=== PATIENT | female | born 1995 | race Caucasian/White ===

== ENCOUNTER 2019-05-19 07:00 | Outpatient (CLI) | payer OTHER ==
[2019-05-19 21:37] LABS: TRICHOMONAS VAGINALIS DNA NEGATIVE (NEGATIVE)
== END 2019-05-19 23:59 ==
LOC: LAB.R 07:00
PROVIDERS: ATTEND Obstetrics & Gynecology
DX: Z36.85 Encounter for antenatal screening for Streptococcus B (principal)
CPT/HCPCS: 87491; 87591; 87661; 87797

== ENCOUNTER 2019-06-07 11:42 | Outpatient (CLI) | payer OTHER ==
[2019-06-07 12:00] LABS: BASOPHILS % (AUTO) 0.5 %; EOSINOPHILS % (AUTO) 0.4 %; LYMPHOCYTES # (AUTO) 1.5 10^3/uL (1.5-3.5); MEAN CORPUSCULAR HEMOGLOBIN 30.4 pg (27.0-31.0); MEAN CORPUSCULAR HGB CONC 33.8 g/dL (32.0-36.0); MEAN CORPUSCULAR VOLUME 89.9 fL (81.0-99.0); MEAN PLATELET VOLUME 10.2 fL (7.9-10.8); MONOCYTES # (AUTO) 0.7 10^3/uL (0.0-1.0); NEUTROPHILS % (AUTO) 72.6 %; PLT - PLATELET COUNT 231 10^3/uL (130-450); RED BLOOD COUNT 3.95 10^6/uL (4.20-5.40); RED CELL DISTRIBUTION WIDTH 13.2 % (12.0-15.0); WHITE BLOOD COUNT 8.2 x10^3/uL (4.8-10.8)
[2019-06-07 12:09] LABS: CALCIUM 8.6 mg/dL (8.5-10.3); CREATININE 0.7 mg/dL (0.4-1.0)
== END 2019-06-07 11:43 | disposition home or self-care (01) ==
LOC: LAB 11:42
PROVIDERS: ATTEND Obstetrics & Gynecology
DX: O34.211 Maternal care for low transverse scar from previous cesarean delivery (principal); Z3A.00 Weeks of gestation of pregnancy not specified; Z01.812 Encounter for preprocedural laboratory examination
CPT/HCPCS: 36415; 80048; 85025; 86850; 86900; 86901

== ENCOUNTER 2019-06-08 05:39 | Inpatient (IN) | payer OTHER ==
[2019-06-08] MEDS ORDERED: ceFAZolin 3 GM in SODIUM CHLORIDE 0.9% 100ML 100 ML IV ONE (05:51)
[2019-06-08] MEDS ORDERED: LACTATED RINGERS 1,000 ML IV ONE ×3 (06:10→08:24)
[2019-06-08] MEDS ORDERED: METHYLERGONOVINE 0.2 MG/ML VIAL ONE (07:13)
[2019-06-08] MEDS ORDERED: ROPIVACAINE 0.2% PF 20ML VIAL ONE (07:13)
[2019-06-08] MEDS ORDERED: CARBOPROST TROMETHAMINE 250 MCG/ML AMP IM ONE (07:13)
--- NOTE | 2019-06-08 07:22 | ANESTHESIA ---
Pre-Anesthesia VS, & Labs - Diagnosis IUP - Procedure Repeat C Section Vital Signs: Temp Pulse Resp BP Pulse Ox 36.9 C 96 18 131/84 H 95 06/08/19 06:52 06/08/19 06:52 06/08/19 06:52 06/08/19 06:52 06/08/19 06:52 Height 5 ft 4 in Weight (kg) 101.151 kg - Is Patient ?: Yes Home Medications and Allergies Allergies/Adverse Reactions: Allergies Allergy/AdvReac Type Severity Reaction Status Date / Time No Known Drug Allergies Allergy Verified 06/08/19 06:38 Anes History & Medical History - Anesthetic History Anesthesia Complications: reports: No previous complications Family history of Anesthesia Complications: Denies Family history of Malignant Hyperthermia: Denies - Medical History Cardiovascular: reports: None Pulmonary: reports: None Gastrointestinal: reports: GERD Urinary: reports: None Neuro: reports: None Musculoskeletal: reports: None Endocrine/Autoimmune: reports: None Blood Disorders: reports: None Skin: reports: None Smoking Status: Former smoker (quite 4 years ago) Psychosocial: reports: No issues indicated - Surgical History Gynecologic: section (emergency c sec 2012) Exam General: Alert, Oriented x3, Cooperative, No acute distress Dental: WNL Mouth Openin Fingerbreadth Neck Mobility: Normal Mallampati classification: I Thyromental Distance: less than 4 cm Respiratory: Lungs clear, Normal breath sounds, No respiratory distress, No accessory muscle use Cardiovascular: Regular rate, Normal S1, Normal S2, No murmurs Abdomen: Normal bowel sounds, Soft, No tenderness, No hepatospenomegaly, No masses Extremities: No clubbing, No cyanosis, No edema, Normal pulses, No tenderness/swelling Neurological: Normal gait, Normal speech, Strength at 5/5 X4 ext, Normal tone, Sensation intact, Cranial nerves 3-12 NL, Reflexes 2+ Mental/Cognitive Status: Alert/Oriented X3, Normal for patient Cognitive Status: Within normal limits Plan Anesthesia Type: Spinal Consent for Procedure(s) Verified and Reviewed: Yes Code Status: Attempt Resuscitation ASA classification: 2-Mild systemic disease Is this case an emergency?: No
[2019-06-08] MEDS ORDERED: CITRIC ACID/SODIUM CITRATE 15 ML UDC PO ONE ×2 (07:30→07:38)
[2019-06-08] MEDS ORDERED: ONDANSETRON 4 MG/2 ML VIAL IVP ONE (08:24)
[2019-06-08] MEDS ORDERED: ePHEDrine 50 MG/ML VIAL IVP ONE (08:24)
[2019-06-08] MEDS ORDERED: OXYTOCIN 10 UNIT/ML VIAL IV ONE (08:24)
[2019-06-08] MEDS ORDERED: MORPHINE PF 5 MG/10 ML AMP EP ONE (08:24)
[2019-06-08] MEDS ORDERED: PHENYLEPHRINE 10 MG/ML VIAL IV ONE (08:24)
[2019-06-08] MEDS ORDERED: diphenhydrAMINE 25 MG CAPSULE PO PRN (10:03)
[2019-06-08] MEDS ORDERED: ONDANSETRON 4 MG/2 ML VIAL IVP PRN (10:03)
[2019-06-08] MEDS ORDERED: SODIUM CHLORIDE FLUSH 0.9% 10 ML SYRINGE IVP PRN (10:03)
--- NOTE | 2019-06-08 10:15 | OPERATIVE REPORT ---
Operative Report - General Admit Date: 06/08/19 Procedure Date: 06/08/19 Planned Procedure: repeat LTC/S Pre-Op Diagnosis: 39 week, prior C/S Procedure Performed: repeat LTC/S Post Op Diagnosis: Same - Procedure Note Primary Surgeon: meg Pritchett MD Secondary Surgeon: Sara Mcgrath MD Anesthesia Provider: Gigi Olivares CRNA Anesthesia Technique: Regional block (TAP block), Spinal Pathology: none IV Fluids (mL): 900 Estimated Blood Loss (mL): 500 Urine Output (mL): 200 Indications: repeat Csection Complications: none
[2019-06-08] MEDS ORDERED: ACETAMINOPHEN 1,000 MG/100 ML 100 ML IV ONE (10:41)
[2019-06-08] MEDS ORDERED: KETOROLAC 30 MG/ML VIAL IVP SCH (11:00)
[2019-06-08] MEDS ORDERED: LACTATED RINGERS 1,000 ML IV SCH (11:00)
[2019-06-08] MEDS: ACETAMINOPHEN 500 MG TABLET PO SCH ×3 (12:16→23:47)
--- NOTE | 2019-06-08 12:31 | OPERATIVE REPORT ---
DATE OF SERVICE: 06/08/2019 Physician: Hitesh Pritchett MD PREOPERATIVE DIAGNOSIS: A 39 weeks estimated gestational age. POSTOPERATIVE DIAGNOSES: 1. A 39 weeks estimated gestational age. 2. Previous section. PROCEDURE PERFORMED: Repeat low transverse section. SURGEON: Hitesh Pritchett MD. ROLL CUTTER: Sara Mcgrath. ANESTHESIA: Gigi Olivares CRNA. ANESTHETIC: Spinal and regional. IV FLUIDS: 900 mL. ESTIMATED BLOOD LOSS: 500 mL. URINE OUTPUT: 200 mL. FINDINGS: Upon entering the abdominal cavity, a live male with Apgars 9 and 9 was noted to be in right occiput anterior position. Amniotic fluid was clear. There was a nuchal cord x1. DESCRIPTION OF PROCEDURE: Following adequate spinal anesthesia, patient was placed in the supine position with a roll under her right hip. At this point, a Vogel catheter was placed under sterile condition. She was prepped and draped in the usual fashion. A timeout was performed, during which concerns were addressed. The issue of having had previous section was mentioned. At this point, the procedure commenced. A low Pfannenstiel incision was carried down through subcutaneous tissue to the fascia. The fascia was incised transversely. Then, using both blunt and sharp dissection, was freed from rectus abdominis and pyramidalis. The rectus was entered high, care was taken to avoid any injury to bowel or bladder. At this point, a bladder flap was developed using both blunt and sharp dissection. A low transverse uterine incision was accomplished using a #10 blade, bandage scissors and finger spread technique. Clear amniotic fluid was encountered at this time, as the membranes were ruptured. The was noted to be right occiput anterior position and there was a nuchal cord x1. The infant was delivered without difficulty. The cord was allowed to pulsate for 1 minute as there was minimal bleeding from the uterine incision itself. At this point, the cord was doubly clamped, divided, and the was handed to the nursery team that was standing by. Cord blood samples were obtained. The placenta was manually delivered. There was extra amniotic membranes were noted in the cervical area. These were removed with ring forceps. The uterus was exteriorized, wrapped in a moist lap and cleansed in the internal portion with dry lap. The incision was then closed using running locking suture of 0 Vicryl with an imbricating layer of 0 Vicryl. At this point, there was evidence of good hemostasis of the incision. The uterus was tipped forward and then the cul-de-sac was suctioned of any clot. The estimated blood was noted to be roughly 500 mL, counting both that in the canister as well as on the laps. At this point, the uterus was delivered back in abdominal cavity. The incision was inspected. No further bleeding was noted. The gutters were irrigated and the peritoneum was closed utilizing 2-0 Vicryl. The rectus was reapproximated with a single [id number] of 2-0 Vicryl. At this point, the rectus was inspected. No bleeding noted, so the fascia was closed using looped 0 PDS. Subcutaneous tissue was noted to be free of any bleeding, so it was closed utilizing 2-0 Vicryl. Incision itself was closed using 4-0 Monocryl subcuticular. At this point, a wound VAC was placed. The sponge and needle counts were correct. The patient tolerated the procedure well. During the procedure Dr Mcgrath assisted with retraction suction and suturing. TD: 06/08/2019 10:33 MTDD
[2019-06-08] MEDS ORDERED: KETOROLAC 30 MG/ML VIAL IVP PRN (15:22)
--- NOTE | 2019-06-08 15:31 | CONSULTATION NOTE ---
Consultation Report: Just spoke with REMY Oleary to have toradol changed from total 4 doses to only 2 doses PRN q6hr. Also requested to make sure the patient does not receive ibuprofen if receiving toradol and no toradol if receiving ibuprofen.
[2019-06-08] MEDS: SODIUM CHLORIDE FLUSH 0.9% 10 ML SYRINGE IVP SCH ×2 (18:11→23:47)
[2019-06-08] MEDS: SIMETHICONE CHEW 80 MG TABLET PO SCH (18:24)
[2019-06-08] MEDS: DOCUSATE SODIUM 100 MG CAPSULE PO SCH (20:55)
[2019-06-09] MEDS: IBUPROFEN 800 MG TABLET PO SCH ×3 (06:01→18:46)
[2019-06-09 06:23] LABS: BASOPHILS # (AUTO) 0.1 10^3/uL (0.0-0.1); BASOPHILS % (AUTO) 0.4 %; EOSINOPHILS % (AUTO) 0.3 %; HGB - HEMOGLOBIN 10.7 g/dL (12.0-16.0); LYMPHOCYTES # (AUTO) 2.3 10^3/uL (1.5-3.5); LYMPHOCYTES % (AUTO) 19.8 %; MEAN CORPUSCULAR HEMOGLOBIN 30.7 pg (27.0-31.0); MEAN CORPUSCULAR VOLUME 90.3 fL (81.0-99.0); MEAN PLATELET VOLUME 10.9 fL (7.9-10.8); MONOCYTES # (AUTO) 0.9 10^3/uL (0.0-1.0); MONOCYTES % (AUTO) 7.4 %; NEUTROPHILS # (AUTO) 8.3 10^3/uL (1.5-6.6); NEUTROPHILS % (AUTO) 71.5 %; PLT - PLATELET COUNT 195 10^3/uL (130-450); RED BLOOD COUNT 3.49 10^6/uL (4.20-5.40); RED CELL DISTRIBUTION WIDTH 13.3 % (12.0-15.0); WHITE BLOOD COUNT 11.6 x10^3/uL (4.8-10.8)
--- NOTE | 2019-06-09 08:45 | PROVIDER PROGRESS NOTE ---
Subjective - General Admit Date: 06/08/19 Procedure Date: 06/08/19 Post Op Days: 1 Procedure Performed: REPEAT LTC/S - Review of Systems Wound/Incisions: positive: Dressing dry and intact Drain Type: Wound vac General: positive: No symptoms (Pain 1-2/10, no flatus. breast feeding. ambulating well) Pulmonary: positive: No symptoms Cardiovascular: positive: No symptoms Gastrointestinal: negative: Nausea, Vomiting, Flatus Musculoskeletal: positive: No symptoms Skin: positive: No symptoms Psychiatric: positive: No symptoms Objective - Patient Data Reviewed Vital Signs: Yes Vital Signs: Vital Signs x48h Temp Pulse Resp BP Pulse Ox 06/09/19 04:38 36.5 C 56 L 16 101/62 98 Weight: Weight 06/07/19 06/08/19 06/09/19 23:59 23:59 23:59 Weight (kg) 101.151 kg Intake & Output: Intake and Output Totals x24h 06/07/19 06/08/19 06/09/19 23:59 23:59 23:59 Intake Total 500 400 Output Total 1050 200 Balance -550 200 - Lab Results Lab Results: 06/09/19 06:10 Other Lab Results: Lab Results x24hrs 06/09/19 Range/Units 06:10 WBC 11.6 H (4.8-10.8) x10^3/uL RBC 3.49 L (4.20-5.40) 10^6/uL Hgb 10.7 L (12.0-16.0) g/dL Hct 31.5 L (37.0-47.0) % MCV 90.3 (81.0-99.0) fL MCH 30.7 (27.0-31.0) pg MCHC 34.0 (32.0-36.0) g/dL RDW 13.3 (12.0-15.0) % Plt Count 195 (130-450) 10^3/uL MPV 10.9 H (7.9-10.8) fL Neut # (Auto) 8.3 H (1.5-6.6) 10^3/uL Lymph # (Auto) 2.3 (1.5-3.5) 10^3/uL Villalba # (Auto) 0.9 (0.0-1.0) 10^3/uL Eos # (Auto) 0.0 (0.0-0.7) 10^3/uL Baso # (Auto) 0.1 (0.0-0.1) 10^3/uL Absolute Nucleated RBC 0.00 x10^3/uL Nucleated RBC % 0.0 /100WBC - Current Medications Current Medications: Current Medications Generic Name Dose Route Start Last Admin Trade Name Veronica PRN Reason Stop Dose Admin Acetaminophen 1,000 mg 06/08/19 11:00 06/08/19 23:47 Tylenol PO 1,000 mg Q8H YVONNE Administration Docusate Sodium 100 mg 06/08/19 21:00 06/08/19 20:55 Colace 100mg Capsule PO 100 mg BID YVONNE Administration Ibuprofen 800 mg 06/09/19 06:00 06/09/19 06:01 Motrin PO 800 mg Q6H YVONNE Administration Simethicone 80 mg 06/08/19 14:00 06/08/19 18:24 Mylicon PO 80 mg TID YVONNE Administration Sodium Chloride 10 ml 06/08/19 17:00 06/08/19 23:47 Normal Saline Flush 0.9% IVP 10 ml 0100,0900,1700 YVONNE Administration - Physical Exam Wound/Incisions: positive: Dressing dry and intact General Appearance: positive: No acute distress, Alert Respiratory: positive: Chest non-tender, No respiratory distress, Breath sounds nml Cardiovascular: positive: Regular rate & rhythm, No murmur, No gallop Rectal: positive: Non-tender Neurologic/Psychiatric: positive: Oriented x3 Impression/Plan - Problem List Problem List: POD #1 excellent progress. bowel function returning breast feeding. cramping with feeding voiding well Dr Mcgrath to see in my absence.
[2019-06-09] MEDS: SIMETHICONE CHEW 80 MG TABLET PO SCH ×2 (09:06→16:15)
[2019-06-09] MEDS: DOCUSATE SODIUM 100 MG CAPSULE PO SCH ×2 (09:06→23:55)
[2019-06-09] MEDS: ACETAMINOPHEN 500 MG TABLET PO SCH ×2 (09:07→17:35)
[2019-06-09] MEDS ORDERED: IBUPROFEN 800 MG TABLET PO SCH (11:00)
[2019-06-09] MEDS: oxyCODONE 5 MG TABLET PO PRN (17:35)
[2019-06-10] MEDS: SIMETHICONE CHEW 80 MG TABLET PO SCH ×2 (00:32→08:44)
[2019-06-10] MEDS: ACETAMINOPHEN 500 MG TABLET PO SCH ×2 (02:48→11:29)
[2019-06-10] MEDS: IBUPROFEN 800 MG TABLET PO SCH ×2 (02:48→08:43)
--- NOTE | 2019-06-10 08:35 | Discharge Plan ---
Discharge Plan Problem Reviewed?: Yes Disposition: Home, Self Care Condition: Good Diet: Regular Activity Restrictions: No lifting more than 10 lbs for 4w Shower Restrictions: No Driving Restrictions: Yes (Not while on oxycodone) No Smoking: If you smoke, Please STOP! Call for help. Follow-up with: Hitesh Pritchett MD [Provider Admit Priv/Credential] - 1 Week
[2019-06-10] MEDS: DOCUSATE SODIUM 100 MG CAPSULE PO SCH (08:44)
--- NOTE | 2019-06-10 09:24 | DISCHARGE SUMMARY ---
Physician: Sara Mcgrath MD DATE OF ADMISSION: 06/08/2019 DATE OF DISCHARGE: 06/10/2019 ADMISSION DIAGNOSES: 1. Intrauterine at 39 weeks. 2. Prior section. DISCHARGE DIAGNOSIS: Status post repeat section, uncomplicated. SURGEON: Sara Mcgrath MD OPERATIONS AND PROCEDURES: 06/08/2019, repeat with a live born delivery of a male, weight 7 pounds 11 ounces, scores 9 at one minute and 9 at five minutes. HOSPITAL COURSE: The patient was admitted for her scheduled repeat section. This was uncom plicated. Her course was also uncomplicated. By day 2, she was requesting dis charge home. She was eating, ambulating, and urinating without difficulties. She was well. She did not have any heavy bleeding or mood problems. EXAM: She was afebrile with normal vital signs. She was alert and smiling, in no apparent distress. Abdomen: Soft, nontender, nondistended. She had a wound VAC in place. There was no erythema surr ounding the VAC. Lower extremities without clubbing, cyanosis, or edema. hematocrit was 31.5. DISCHARGE MEDICATIONS: 1. Oxycodone 5 mg p.r.n. severe pain, #20, no refills. 2. Ibuprofen p.r.n. pain. 3. Colace p.r.n. to soften stool. 4. Continue vitamins. DISCHARGE PRECAUTIONS: Routine postoperative and precautions given. FOLLOWUP: In one week with Dr. Pritchett for incision check. DISPOSITION: Home. CONDITION: Good. TD: 06/10/2019 08:50
[2019-06-10 10:58] VITALS: BP 125/78
[2019-06-10] MEDS: oxyCODONE 5 MG TABLET PO PRN (12:28)
== END 2019-06-10 13:00 | disposition home or self-care (01) | DRG 788 ==
LOC: FBP 05:39
PROVIDERS: ADMIT Obstetrics & Gynecology; ATTEND Obstetrics & Gynecology
PROC: 10D00Z1 Extraction of Products of Conception, Low, Open Approach (ICD-10-PCS; principal; 2019-06-08 08:30)
DX: O34.211 Maternal care for low transverse scar from previous cesarean delivery (principal); O69.81X0 Labor and delivery complicated by cord around neck, without compression, not applicable or unspecified; Z3A.39 39 weeks gestation of pregnancy; Z37.0 Single live birth
CPT/HCPCS: 36415; 85025; A9270; J0131; J2795; J7120